=== PATIENT | female | born 1980 | race American Indian/Alaskan Native ===

== ENCOUNTER 2021-08-17 11:22 | Emergency (ER) | payer SELFPAY ==
[2021-08-17 11:56] VITALS: BP 107/55
--- NOTE | 2021-08-17 13:03 | Emergency Department Report ---
- General Chief Complaint: Chest Pain Stated Complaint: BODY PAIN/FEVER/CHEST/PAIN Time Seen by Provider: 08/17/21 12:29 Source: patient Mode of arrival: Ambulatory Limitations: No Limitations - History of Present Illness Initial Comments: Patient is a 40-year-old female presents emergency room complaints of generalized body aches that began last night. She has associated chills, cough, chest pain. She denies any fever, vomiting, diarrhea, shortness of breath. She has not been vaccinated for COVID-19. She denies any known sick contacts or recent travel. Past medical history of hypertension. Allergy to codeine. - Related Data Previous Rx's Medication Instructions Recorded Last Taken Type Benzonatate [Tessalon Perles] 100 mg PO Q8HR PRN #12 capsule 08/17/21 Unknown Rx Naproxen 375 mg PO BID PRN #20 tablet 08/17/21 Unknown Rx guaiFENesin ER [Mucinex ER] 600 mg PO Q12H #14 tablet.er 08/17/21 Unknown Rx Allergies Allergy/AdvReac Type Severity Reaction Status Date / Time codeine Allergy Unknown Verified 08/17/21 11:52 ED Review of Systems ROS: Stated complaint: BODY PAIN/FEVER/CHEST/PAIN Other details as noted in HPI Comment: All other systems reviewed and negative ED Past Medical Hx - Past Medical History Previous Medical History?: No - Surgical History Past Surgical History?: No - Medications Home Medications: Home Medications Medication Instructions Recorded Confirmed Last Taken Type Benzonatate [Tessalon Perles] 100 mg PO Q8HR PRN #12 capsule 08/17/21 Unknown Rx Naproxen 375 mg PO BID PRN #20 tablet 08/17/21 Unknown Rx guaiFENesin ER [Mucinex ER] 600 mg PO Q12H #14 tablet.er 08/17/21 Unknown Rx ED Physical Exam - General Limitations: No Limitations General appearance: alert, in no apparent distress - Head Head exam: Present: atraumatic, normocephalic - Eye Eye exam: Present: normal appearance - ENT ENT exam: Present: mucous membranes moist - Respiratory Respiratory exam: Present: normal lung sounds bilaterally. Absent: respiratory distress, wheezes, rales, rhonchi, stridor, chest wall tenderness, accessory muscle use, decreased breath sounds, prolonged expiratory - Cardiovascular Cardiovascular Exam: Present: regular rate, normal rhythm, normal heart sounds. Absent: systolic murmur, diastolic murmur, rubs, gallop - Neurological Exam Neurological exam: Present: alert, oriented X3 - Psychiatric Psychiatric exam: Present: normal affect, normal mood - Skin Skin exam: Present: warm, dry, intact ED Course Vital Signs 08/17/21 11:52 Temperature 98 F Pulse Rate 97 H Respiratory 16 Rate Blood Pressure 107/55 [Left] O2 Sat by Pulse 99 Oximetry ED Medical Decision Making - EKG Data EKG shows normal: sinus rhythm, axis, ST-T waves Rate: normal - EKG Data 08/17/21 13:02 Low voltage No STEMI - Radiology Data Radiology results: report reviewed Ordering Physician: DANTE RAMÍREZ Date of Service: 08/17/21 Procedure(s): XR chest routine 2V Accession Number(s): [id number] cc: DANTE RAMÍREZ Fluoro Time In Minutes: CHEST 2 VIEWS INDICATION: CP, cough. COMPARISON: None FINDINGS: SUPPORT DEVICES: None. HEART: Within normal limits. LUNGS/PLEURA: No acute air space or interstitial disease. No pneumothorax. ADDITIONAL FINDINGS: None. IMPRESSION: 1. No acute findings. Signer Name: Mike Stephenson MD Signed: 08/17/2021 1:06 PM Workstation Name: [id number] Transcribed By: DARIA Dictated By: Mike Stephenson MD Electronically Authenticated By: Mike Stephenson MD Signed Date/Time: 08/17/21 1306 DD/ 1305 TD/TT: - Medical Decision Making Patient is a 40-year-old female presents emergency room complaints of generalized body aches that began last night. She has associated chills, cough, chest pain. She denies any fever, vomiting, diarrhea, shortness of breath. She has not been vaccinated for COVID-19. She denies any known sick contacts or recent travel. Past medical history of hypertension. Allergy to codeine. Vitals are normal. Breath sounds are clear bilaterally, no wheezing, no rales, no rhonchi. EKG performed in triage prior to my examination therefore I placed an order for the EKG that was already performed. EKG shows low voltage otherwise stable. There are no signs of pericarditis. Patient has no clinical signs of endocarditis. She is PERC criteria negative for PE, PE unlikely, she is not having SOB or pleuritic pain or hemoptysis. Chest x-ray 1. No acute findings. Symptoms and examination appear likely consistent with URI. Patient is presenting with the symptoms during COVID-19 pandemic, discussed the possibility of COVID-19 with patient, discussed outpatient testing, discussed self quarantine, discussed return precautions. Patient does not meet hospital criteria for admission or for COVID-19 testing, she has no hypoxia, no increased work of breathing, no infiltrates on x-ray. Discussed supportive care and symptomatic treatment with patient and the importance of oral hydration. Advised patient please take medication as prescribed. Increase your fluid intake. Follow-up with your primary care doctor. Return to emergency room for any new or worsening symptoms. Recommend outpatient COVID-19 testing and if positive will need to self quarantine for 10 days from onset of symptoms. I recommend having the COVID-19 test performed outpatient 48 hours after your symptoms have started. Critical care attestation.: If time is entered above; I have spent that time in minutes in the direct care of this critically ill patient, excluding procedure time. ED Disposition Clinical Impression: URI (upper respiratory infection) Qualifiers: URI type: unspecified URI Qualified Code(s): J06.9 - Acute upper respiratory infection, unspecified Disposition: 01 HOME / SELF CARE / HOMELESS Is pt being admited?: No Does the pt Need Aspirin: No Condition: Stable Instructions: Viral Respiratory Infection Additional Instructions: please take medication as prescribed. Increase your fluid intake. Follow-up with your primary care doctor. Return to emergency room for any new or worsening symptoms. Recommend outpatient COVID-19 testing and if positive will need to self quarantine for 10 days from onset of symptoms. I recommend having the COVID-19 test performed outpatient 48 hours after your symptoms have started. Prescriptions: guaiFENesin ER [Mucinex ER] 600 mg PO Q12H #14 tablet.er Naproxen 375 mg PO BID PRN #20 tablet PRN Reason: pain Benzonatate [Tessalon Perles] 100 mg PO Q8HR PRN #12 capsule PRN Reason: cough Referrals: MATIAS WESTON MD [Staff Physician] - 3-5 Days [facility] [Provider Group] - 3-5 Days Time of Disposition: 13:15 Print Language: ALBANIAN
--- NOTE | 2021-08-17 13:10 | XRay Report ---
CHEST 2 VIEWS INDICATION: CP, cough. COMPARISON: None FINDINGS: SUPPORT DEVICES: None. HEART: Within normal limits. LUNGS/PLEURA: No acute air space or interstitial disease. No pneumothorax. ADDITIONAL FINDINGS: None. IMPRESSION: 1. No acute findings. Signer Name: Mike Stephenson MD Signed: 08/17/2021 1:06 PM Workstation Name: [id number]
--- NOTE | 2021-08-18 10:55 | Electrocardiograph Report ---
[facility] Test Date: 2021-08-17 Test Time: 11:56:44 Pat Name: KATELYNN MONSIVAIS Department: Room: Gender: F Gum Dipper: MARII : 1980 Requested By: ED DOC Order Number: [id number] Reading MD: Chio Hopkins Measurements Intervals [place] Rate: 66 P: 54 WV: 172 QRS: -5 QRSD: 77 T: -1 QT: 360 QTc: 378 Interpretive Statements Sinus rhythm Low voltage, precordial leads No previous ECG available for comparison Electronically Signed On 08-18-2021 10:55:10 EST by Chio Hopkins
== END 2021-08-17 15:10 | disposition home or self-care (01) ==
LOC: ED 11:22
DX: J06.9 Acute upper respiratory infection, unspecified (principal)
CPT/HCPCS: 71046; 93005; 99283

== ENCOUNTER 2022-03-25 12:21 | Emergency (ER) | payer SELFPAY ==
[2022-03-25 12:56] VITALS: BP 124/77
--- NOTE | 2022-03-25 13:03 | Emergency Department Report ---
ED Female HPI - General Chief complaint: Abdominal Pain Stated complaint: ABD PAIN/PELVIS PAIN/ VAG BLEEDING Time Seen by Provider: 03/25/22 13:00 Source: patient Mode of arrival: Ambulatory Limitations: No Limitations - History of Present Illness Initial comments: Patient is a 41-year-old female that comes to the emergency room complaining of vaginal bleeding. Patient is undergoing pelvic wall physical therapy. If you ask her to see her following you can see the documented notes from [facility]. She states that she had PT yesterday. And the physical therapist did a pelvic exam on her and since that time she has been bleeding. Patient does not have regular periods due to her prior [employer] and procedure, which she cannot tell me the name of. - Related Data Previous Rx's Medication Instructions Recorded Last Taken Type Benzonatate [Tessalon Perles] 100 mg PO Q8HR PRN #12 capsule 08/17/21 Unknown Rx Naproxen 375 mg PO BID PRN #20 tablet 08/17/21 Unknown Rx guaiFENesin ER [Mucinex ER] 600 mg PO Q12H #14 tablet.er 08/17/21 Unknown Rx Allergies Allergy/AdvReac Type Severity Reaction Status Date / Time codeine Allergy Unknown Verified 03/25/22 12:56 ED Review of Systems ROS: Stated complaint: ABD PAIN/PELVIS PAIN/ VAG BLEEDING Other details as noted in HPI Comment: All other systems reviewed and negative ED Past Medical Hx - Past Medical History Previous Medical History?: No - Surgical History Past Surgical History?: No - Family History Family history: no significant - Social History Smoking Status: Never Smoker Substance Use Type: None - Medications Home Medications: Home Medications Medication Instructions Recorded Confirmed Last Taken Type Benzonatate [Tessalon Perles] 100 mg PO Q8HR PRN #12 capsule 08/17/21 Unknown Rx Naproxen 375 mg PO BID PRN #20 tablet 08/17/21 Unknown Rx guaiFENesin ER [Mucinex ER] 600 mg PO Q12H #14 tablet.er 08/17/21 Unknown Rx ED Physical Exam - General Limitations: No Limitations General appearance: alert, in no apparent distress - Head Head exam: Present: atraumatic, normocephalic - Eye Eye exam: Present: normal appearance - ENT ENT exam: Present: mucous membranes moist - Neck Neck exam: Present: normal inspection - Respiratory Respiratory exam: Present: normal lung sounds bilaterally. Absent: respiratory distress - Cardiovascular Cardiovascular Exam: Present: regular rate, normal rhythm. Absent: systolic murmur, diastolic murmur, rubs, gallop - GI/Abdominal GI/Abdominal exam: Present: soft, normal bowel sounds - Extremities Exam Extremities exam: Present: normal inspection - Back Exam Back exam: Present: normal inspection - Neurological Exam Neurological exam: Present: alert, oriented X3 - Psychiatric Psychiatric exam: Present: normal affect, normal mood - Skin Skin exam: Present: warm, dry, intact, normal color. Absent: rash ED Course Vital Signs 03/25/22 12:50 Temperature 97.9 F Pulse Rate 91 H Respiratory 18 Rate Blood Pressure 124/77 [Left] O2 Sat by Pulse 100 Oximetry ED Medical Decision Making - Lab Data Result diagrams: 03/25/22 13:16 - Medical Decision Making To ER for pelvic exam. UA and labs ordered Critical care attestation.: If time is entered above; I have spent that time in minutes in the direct care of this critically ill patient, excluding procedure time. ED Disposition Clinical Impression: Vaginal bleeding Disposition: 30 STILL A PATIENT Is pt being admited?: No Does the pt Need Aspirin: No Condition: Stable Instructions: Abdominal Pain (ED)
[2022-03-25 13:43] LABS: Hematocrit 39.8 % (30.3-42.9); Hemoglobin 13.5 gm/dl (10.1-14.3); Mean Corpuscular HGB Conc 34 % (30-34); Mean Corpuscular Volume 91 fl (79-97); Platelet Count 295 K/mm3 (140-440); Red Blood Count 4.37 M/mm3 (3.65-5.03); Red Cell Distribution Width 12.5 % (13.2-15.2)
[2022-03-25 13:56] LABS: BUN/Creatinine Ratio 10; Blood Urea Nitrogen 9 mg/dL (7-17); Calcium 9.7 mg/dL (8.4-10.2); Hemolysis Index 10
[2022-03-25 14:36] LABS: Mucus,Urine 3+ /HPF
[2022-03-25 14:40] LABS: Bilirubin,Urine Negative (Negative); Blood,Urine Small (Negative); Color,Urine Yellow (Yellow); PH,Urine 5.5 (5.0-7.0); Urobilinogen,Urine < 2.0 mg/dL (<2.0)
[2022-03-25 14:42] LABS: HCG Qualitative,Urine Negative (Negative)
== END 2022-03-26 14:53 | disposition still patient (30) ==
LOC: ED 12:21
DX: N93.9 Abnormal uterine and vaginal bleeding, unspecified (principal); Z88.5 Allergy status to narcotic agent
CPT/HCPCS: 36415; 80048; 81001; 81025; 85027; 87086; 99283